=== PATIENT | female | born 1995 | race Caucasian/White ===

== ENCOUNTER 2022-06-28 00:35 | Emergency (ER) | payer OTHER, MEDICAID, SELFPAY ==
[2022-06-28 00:38] VITALS: BP 141/78; PULSE 98; RESP 18; TEMP 36.6; O2SAT 99; BMI 34.7
--- NOTE | 2022-06-28 02:09 | ED_ITS ---
HPI - Ear Problem General Chief complaint: Ear Problems Stated complaint: COVID+, has pink eye, ear pain Time Seen by Provider: 06/28/22 00:50 History of Present Illness HPI Narrative: Patient is a 26-year-old female presents today with having coughing congestion upper respiratory symptoms. Still having right ear pain. Patient tested positive for COVID a few days ago. Been having earache getting worst. Presented to the emergency department. No neck pain. No focal weakness Related Data Previous Rx's Medication Instructions Recorded azithromycin 250 mg tablet See Rx Instructions PO .COMPLEX 06/28/22 upper resp infection #6 tabs ibuprofen 400 mg tablet 400 mg PO Q6H PRN pain #20 tabs 06/28/22 Allergies Allergy/AdvReac Type Severity Reaction Status Date / Time Penicillins Allergy Severe ANAPHYLAXIS Unverified 03/01/20 16:32 latex [LATEX] Allergy Intermediate RASH Unverified 03/01/20 16:32 amoxicillin [Augmentin] Allergy Unknown anaphylaxis Verified 06/25/16 00:00 clavulanic acid [Augmentin] Allergy Unknown anaphylaxis Verified 06/25/16 00:00 penicillin V Allergy Unknown anaphylaxis Verified 06/25/16 00:00 From Augmentin Allergy Unknown HIVES Uncoded 03/01/20 16:32 Latex Allergy Unknown rash Uncoded 06/25/16 00:00 Review of Systems Review of Systems: Positive coughing congestion upper respiratory symptoms positive hearing on the right side Yes all other systems are reviewed and are negative [facility] Past Medical History Attestation statement: The following information was validated with the patient. Social History Social History Advance Directives: No Advance Directives Information Provided: Yes Physical Exam Vital Signs: Vital Signs: Last Vital Signs Temp 97.9 F 06/28/22 00:38 Pulse 98 06/28/22 00:38 Resp 18 06/28/22 00:38 BP 141/78 H 06/28/22 00:38 Pulse Ox 99 06/28/22 00:38 O2 Del Method 06/28/22 00:38 BMI result Body Mass Index 34.7 Appearance: Alert. Oriented X3. No acute distress. Eyes: Pupils equal, round and reactive to light. ENT: Pharynx normal. TMs on right side was grossly bulging. Light reflex is gone. Slight redness noted. Neck: Normal inspection. Neck supple. No lymph nodes noted. No crepitus CVS: Normal heart rate and rhythm. Pulses normal. Normal S1 and S2 Respiratory: No respiratory distress. Breath sounds normal. No Wheezing. No rales Abdomen: Soft and nontender. No rigidity. No distention. good BS x4 Skin: Skin warm and dry. Normal skin color. Normal skin turgor. Extremities: No lower extremity edema. Neurovascular intact to all extremities. No Lacerations. No Rash Neuro: Oriented X 3. No motor deficit. No sensory deficit. Moving all extermities. No slurred speech Medical Decision Making Differential Diagnosis Ear infection otitis media patient has pain to the right ear. Bulging eardrums. There is no mastoid tenderness suggest malignant otitis media. Patient well- appearing. Positive COVID. Previous allergies to penicillin and Augmentin. Will give patient a Z-Dav. Close follow-up on an outpatient basis. Motrin for pain. Prescription Management I considered prescription management with: Pain Medication and Antibiotic Discharge Plan Discharge Clinical Impression: Otitis media Patient Disposition: Home, Self-Care Instructions: Ear Infection (ED), COVID-19 (Coronavirus Disease 2019) (ED) Prescriptions: New azithromycin 250 mg tablet See Rx Instructions .ROUTE .COMPLEX Qty: 6 0RF Rx Instructions: take 500 mg today (day 1), then 250 mg for 4 days (days 2-5) ibuprofen 400 mg tablet 400 mg PO Q6H PRN (Reason: pain) Qty: 20 0RF Referrals: Adwoa Warren MD [Primary Care Provider] -
== END 2022-06-28 02:19 | disposition home or self-care (01) ==
PROVIDERS: Emergency Provider Emergency Medicine Emergency Medical Services; PCP Family Medicine
DX: U07.1 COVID-19 (principal); H66.91 Otitis media, unspecified, right ear
CPT/HCPCS: 99282; 99283

== ENCOUNTER 2022-08-06 20:15 | Emergency (ER) | payer OTHER, MEDICAID, SELFPAY ==
--- NOTE | ~2022-08-06 | US_ITS ---
EXAMINATION: ULTRASOUND PELVIC, obstetric CLINICAL INFORMATION: Pelvic pain COMPARISON: CT scan abdomen pelvis 03/03/2013 TECHNIQUE: Transvaginal: Used to better visualize pelvic structures Transabdominal: Not adequate for visualization Spectral Doppler and color Doppler exam was utilized. LMP: 06/25/2022. Gestational age by LMP 6 weeks 0 days. VANESSA by LMP 04/01/2023 FINDINGS: UTERUS: Trace fluid in the endometrial cavity. Endometrial thickness 0.7 cm. Uterus measures 7.3 x 3.1 x 4 cm. ADNEXA: Ovarian vascularity:Doppler demonstrates both arterial and venous vascular flow in the right and left ovary. No evidence of ovarian torsion. Right Ovary: 2.9 x 2 x 2.7 cm Left Ovary: 2.8 x 1.8 x 2.3 cm Cul-de-sac: No Fluid US/US OB pelvic and transvaginal IMPRESSION: No intrauterine gestation. Ectopic cannot be excluded. There is no adnexal abnormality. No fluid in the cul-de-sac. Correlate with serum beta-hCG levels. Consider follow-up ultrasound in 2-3 weeks.
[2022-08-06 20:25] VITALS: BP 128/80; PULSE 106; RESP 18; TEMP 36.4; O2SAT 98; BMI 35.4
--- NOTE | 2022-08-06 20:26 | ED_ITS ---
HPI - Female Genitourinary General Chief complaint: Vaginal Bleeding <ARVIN Davies - Last Filed: 08/06/22 20:29> Stated complaint: ?Miscarriage <ARVIN Davies - Last Filed: 08/06/22 20:29> Time Seen by Provider: 08/06/22 23:03 <ARVIN Davies - Last Filed: 08/06/22 20:29> Source: patient <Luisa Tello MD - Last Filed: 08/07/22 00:03> Mode of arrival: ambulatory <Luisa Tello MD - Last Filed: 08/07/22 00:03> History of Present Illness HPI Narrative: 26-year-old female , comes in with LMP 06/25 (knew she was ) and developed vaginal spotting last night but then began having cramping this morning with passing copious amounts of clots the has since slowed down. Patient states that she continues to have abdominal cramping although it has lessened in character. <Luisa Tello MD - Last Filed: 08/07/22 00:03> Related Data Home medications: Previous Rx's Medication Instructions Recorded azithromycin 250 mg tablet See Rx Instructions PO .COMPLEX 06/28/22 upper resp infection #6 tabs ibuprofen 400 mg tablet 400 mg PO Q6H PRN pain #20 tabs 06/28/22 <ARVIN Davies - Last Filed: 08/06/22 20:29> Allergies/Adverse reactions: Allergies Allergy/AdvReac Type Severity Reaction Status Date / Time Penicillins Allergy Severe ANAPHYLAXIS Verified 08/06/22 20:25 latex [LATEX] Allergy Intermediate RASH Verified 08/06/22 20:25 amoxicillin [Augmentin] Allergy Unknown anaphylaxis Verified 08/06/22 20:25 clavulanic acid [Augmentin] Allergy Unknown anaphylaxis Verified 08/06/22 20:25 penicillin V Allergy Unknown anaphylaxis Verified 08/06/22 20:25 From Augmentin Allergy Unknown HIVES Uncoded 03/01/20 16:32 Latex Allergy Unknown rash Uncoded 06/25/16 00:00 <ARVIN Davies - Last Filed: 08/06/22 20:29> Review of Systems Review of Systems: Pertinent positives and negatives as stated in HPI <Luisa Tello MD - Last Filed: 08/07/22 00:03> [facility] Past Medical History Source: nursing notes reviewed <Luisa Tello MD - Last Filed: 08/07/22 00:03> Social History Social History: Social History Smoked in Last 30 Days: Yes Use of substances other than those prescribed or required for medical reasons: No Advance Directives: No Advance Directives Information Provided: No Patient : Yes <ARVIN Daveis - Last Filed: 08/06/22 20:29> Physical Exam Vital Signs: Vital Signs: Last Vital Signs Temp 97.9 F 08/06/22 23:54 Pulse 90 08/06/22 23:54 Resp 19 08/06/22 23:54 BP 124/75 08/06/22 23:54 Pulse Ox 100 08/06/22 23:54 O2 Del Method 08/06/22 23:54 BMI result Body Mass Index 35.4 <ARVIN Davies - Last Filed: 08/06/22 20:29> Vital Signs: Last Vital Signs Temp 97.9 F 08/06/22 23:54 Pulse 90 08/06/22 23:54 Resp 19 08/06/22 23:54 BP 124/75 08/06/22 23:54 Pulse Ox 100 08/06/22 23:54 O2 Del Method 08/06/22 23:54 BMI result Body Mass Index 35.4 VITAL SIGNS: Reviewed. GENERAL: Well developed, well nourished, in no acute distress. HEAD: Normocephalic/atraumatic EYES: PERRLA, EOMI LUNGS: Normal breath sounds. No adventitious sounds or accessory muscle use. SpO2<100> CARDIOVASCULAR: Regular rate and rhythm without noted murmurs ABDOMEN: Soft, non-tender, non-distended with bowel sounds. MUSCULOSKELETAL: No tenderness, deformities, or effusions noted on gross inspection. EXTREMITIES: No cyanosis, clubbing or edema. SKIN: Inspection of the skin reveals no rashes NEUROLOGIC: Alert and oriented x 4. Strength and sensation to light touch were grossly intact x 4. <Luisa Tello MD - Last Filed: 08/07/22 00:03> Course Course Course Narrative: RME - 26 y/o who is currently ~6 weeks LMP 06/25/22 presents to the ER with vaginal bleeding and cramping that started yesterday but got acutely worse today, now passing clots. Pain is on the right pelvic area but also in the middle, also reports back pain. Will get labs and pelvic U/S to r/o ectopic. <ARVIN Davies - Last Filed: 08/06/22 20:29> Medical Decision Making Medical Decision Making [facility] Narrative: 26-year-old female with history and clinical presentation and review of all investigations my interpretation is that patient has had first-trimester vaginal bleeding with clots which is highly suggestive of possible SAB. Patient is aware of all results, she is hemodynamically stable and will be given pain medication for the cramping and after discussion and consultation with OBGYN, Dr. Sherif Rangel, patient will be discharged with instructions to follow-up in 48 hours to obtain a repeat hCG and she will avoid all ibuprofen until that time. <Luisa Tello MD - Last Filed: 08/07/22 00:03> Differential Diagnosis Differential Diagnoses: The differential diagnosis associated with the presentation includes <Luisa Tello MD - Last Filed: 08/07/22 00:03> Please see the discussion above <Luisa Tello MD - Last Filed: 08/07/22 00:03> Consult Healthcare Provider Management of the patient was discussed with: Commercial Title Examiner <Luisa Tello MD - Last Filed: 08/07/22 00:03> 2346: Dr. Sherif Rangel has recommended follow-up in 48 hours for repeat hCG and no administration of ibuprofen. <Luisa Tello MD - Last Filed: 08/07/22 00:03> Lab Data [facility] Lab Attestation statement: I reviewed the patient's lab results. <Luisa Tello MD - Last Filed: 08/07/22 00:03> Please see the discussion above <Luisa Tello MD - Last Filed: 08/07/22 00:03> Result Diagrams: 08/06/22 21:23 08/06/22 21:23 <ARVIN Davies - Last Filed: 08/06/22 20:29> Labs: Lab Results 08/06/22 08/06/22 08/06/22 Range/Units 21: 21: 21:23 WBC 7.9 (4.8-10.8) X10*3/uL RBC 4.40 (4.20-5.50) X10*6/uL Hgb 13.0 (12.0-16.0) g/dl Hct 39.0 (37.0-47.0) % MCV 88.6 (80.0-98.0) fL MCH 29.5 (27.0-33.0) pg MCHC 33.3 (31.0-35.0) g/dl RDW 12.6 (11.0-16.0) % Plt Count 245 (160-400) X10*3/uL MPV 9.9 (9.4-12.3) fL Immature Gran % (Auto) 0.3 (0.0-0.4) % Neut % (Auto) 59.9 (45-73) % Lymph % (Auto) 28.7 (20-40) % [place] % (Auto) 7.5 (2-11) % Eos % (Auto) 3.2 (0-4) % Baso % (Auto) 0.4 (0-2) % Lymph # (Auto) 2.3 (1.2-4.9) X10*3/uL [place] # (Auto) 0.6 (0.1-1.2) X10*3/uL Eos # (Auto) 0.3 (0.0-0.4) X10*3/uL Baso # (Auto) 0.0 (0.0-0.2) X10*3/uL Abs Immat Gran (auto) 0.02 (0.00-0.03) X10*3/uL Absolute Neuts (auto) 4.7 (2.0-8.3) x10*3/uL Absolute Nucleated RBC 0.000 (0.0-0.012) X10*3/uL Nucleated RBC % (auto) 0.0 (0.0-0.2) /100WBC Sodium 140 (135-145) mmol/L Potassium 4.2 (3.3-5.1) mmol/L Chloride 108 (96-108) mmol/L Carbon Dioxide 25 (22-29) mmol/L Anion Gap 11 L (12-20) BUN 11 (9-16) mg/dL Creatinine 0.74 (0.5-1.4) mg/dL Estim Creat Clear Calc 119.7 Estimated GFR > 60 Random Glucose 113 (60-115) mg/dL Calcium 9.4 (8.4-10.2) mg/dL Magnesium 1.9 (1.6-2.6) mg/dL Total Bilirubin 0.6 (0.0-1.0) mg/dL Direct Bilirubin 0.2 (0.0-0.5) mg/dL AST 20 (5-31) U/L ALT 31 (0-31) U/L Alkaline Phosphatase 66 (39-117) U/L Total Protein 6.4 L (6.5-8.0) g/dL Albumin 4.0 (3.5-5.0) g/dL Beta HCG, Quant 1270 mIU/mL Blood Type O Positive <ARVIN Davies - Last Filed: 08/06/22 20:29> Lab Results 08/06/22 08/06/22 08/06/22 Range/Units 21:23 21:23 21:23 WBC 7.9 (4.8-10.8) X10*3/uL RBC 4.40 (4.20-5.50) X10*6/uL Hgb 13.0 (12.0-16.0) g/dl Hct 39.0 (37.0-47.0) % MCV 88.6 (80.0-98.0) fL MCH 29.5 (27.0-33.0) pg MCHC 33.3 (31.0-35.0) g/dl RDW 12.6 (11.0-16.0) % Plt Count 245 (160-400) X10*3/uL MPV 9.9 (9.4-12.3) fL Immature Gran % (Auto) 0.3 (0.0-0.4) % Neut % (Auto) 59.9 (45-73) % Lymph % (Auto) 28.7 (20-40) % [place] % (Auto) 7.5 (2-11) % Eos % (Auto) 3.2 (0-4) % Baso % (Auto) 0.4 (0-2) % Lymph # (Auto) 2.3 (1.2-4.9) X10*3/uL [place] # (Auto) 0.6 (0.1-1.2) X10*3/uL Eos # (Auto) 0.3 (0.0-0.4) X10*3/uL Baso # (Auto) 0.0 (0.0-0.2) X10*3/uL Abs Immat Gran (auto) 0.02 (0.00-0.03) X10*3/uL Absolute Neuts (auto) 4.7 (2.0-8.3) x10*3/uL Absolute Nucleated RBC 0.000 (0.0-0.012) X10*3/uL Nucleated RBC % (auto) 0.0 (0.0-0.2) /100WBC Sodium 140 (135-145) mmol/L Potassium 4.2 (3.3-5.1) mmol/L Chloride 108 (96-108) mmol/L Carbon Dioxide 25 (22-29) mmol/L Anion Gap 11 L (12-20) BUN 11 (9-16) mg/dL Creatinine 0.74 (0.5-1.4) mg/dL Estim Creat Clear Calc 119.7 Estimated GFR > 60 Random Glucose 113 (60-115) mg/dL Calcium 9.4 (8.4-10.2) mg/dL Magnesium 1.9 (1.6-2.6) mg/dL Total Bilirubin 0.6 (0.0-1.0) mg/dL Direct Bilirubin 0.2 (0.0-0.5) mg/dL AST 20 (5-31) U/L ALT 31 (0-31) U/L Alkaline Phosphatase 66 (39-117) U/L Total Protein 6.4 L (6.5-8.0) g/dL Albumin 4.0 (3.5-5.0) g/dL Beta HCG, Quant 1270 mIU/mL Blood Type O Positive <Luisa Tello MD - Last Filed: 08/07/22 00:03> Radiology Impression Radiologist Impression: My interpretation is in agreement with radiology's impression of the imaging study. <Luisa Tello MD - Last Filed: 08/07/22 00:03> Discharge Plan Discharge Clinical Impression: First trimester bleeding, SAB (spontaneous ) <ARVIN Davies - Last Filed: 08/06/22 20:29> Patient Disposition: Home, Self-Care <ARVIN Davies - Last Filed: 08/06/22 20:29> Instructions: Miscarriage (ED) <ARVIN Davies - Last Filed: 08/06/22 20:29> Additional Instructions: 1. Drink plenty of water 2. Follow-up with your OB physician in 2 days for repeat hCG. 3. Tylenol 1000 mg, orally, every 6 hours as needed for pain control. Do not exceed 4000 mg within 24 hours. You may additional use a heating pad for additional symptom relief. Do not use any ibuprofen/Motrin/Aleve at this time. Return to the ER for any worsening symptoms. <ARVIN Davies - Last Filed: 08/06/22 20:29> Prescriptions: No Action azithromycin 250 mg tablet See Rx Instructions .ROUTE .COMPLEX Qty: 6 0RF Rx Instructions: take 500 mg today (day 1), then 250 mg for 4 days (days 2-5) ibuprofen 400 mg tablet 400 mg PO Q6H PRN (Reason: pain) Qty: 20 0RF <ARVIN Davies - Last Filed: 08/06/22 20:29> Referrals: Adwoa Warren MD [Primary Care Provider] - Santhosh Gorman MD [Physician] - <ARVIN Davies - Last Filed: 08/06/22 20:29> Stand Alone Forms: Work/School Release <ARVIN Davies - Last Filed: 08/06/22 20:29>
[2022-08-06 21:28] LABS: MANUAL DIFF FLAG NO
[2022-08-06 21:29] LABS: Basophils Percent Auto 0.4 % (0-2); Eosinophils Absolute Auto 0.3 X10*3/uL (0.0-0.4); Eosinophils Percent Auto 3.2 % (0-4); Imm Gran Abs Auto 0.02 X10*3/uL (0.00-0.03); Imm Gran Pct Auto 0.3 % (0.0-0.4); Lymphocytes Absolute Auto 2.3 X10*3/uL (1.2-4.9); Lymphocytes Percent Auto 28.7 % (20-40); Mean Corpuscular HGB Conc 33.3 g/dl (31.0-35.0); Mean Corpuscular Hemoglobin 29.5 pg (27.0-33.0); Mean Corpuscular Volume 88.6 fL (80.0-98.0); Mean Platelet Volume 9.9 fL (9.4-12.3); Monocytes Absolute Auto 0.6 X10*3/uL (0.1-1.2); Monocytes Percent Auto 7.5 % (2-11); Neutrophils Absolute Auto 4.7 x10*3/uL (2.0-8.3); Neutrophils Percent Auto 59.9 % (45-73); Platelet Count 245 X10*3/uL (160-400); Red Cell Distribution Width 12.6 % (11.0-16.0); White Blood Count 7.9 X10*3/uL (4.8-10.8)
[2022-08-06 21:58] LABS: Alanine Aminotransferase 31 U/L (0-31); Alkaline Phosphatase 66 U/L (39-117); Anion Gap 11 (12-20); Aspartate Amino Transferase 20 U/L (5-31); Bilirubin Direct 0.2 mg/dL (0.0-0.5); Bilirubin Total 0.6 mg/dL (0.0-1.0); Blood Urea Nitrogen 11 mg/dL (9-16); Calcium 9.4 mg/dL (8.4-10.2); Carbon Dioxide 25 mmol/L (22-29); Chloride 108 mmol/L (96-108); Creatinine Clr Calc Pharmacy 119.7; Estimated Glomerular Filt Rate > 60; Glucose Random 113 mg/dL (60-115); HCG Quantitative 1270 mIU/mL; Magnesium 1.9 mg/dL (1.6-2.6); Potassium 4.2 mmol/L (3.3-5.1); Sodium 140 mmol/L (135-145); Total Protein 6.4 g/dL (6.5-8.0)
[2022-08-06 22:34] VITALS: BP 117/83; PULSE 93; RESP 18; O2SAT 98
--- NOTE | 2022-08-06 23:23 | PC.NURSE ---
This nurse resume care at 2300:
--- NOTE | 2022-08-06 23:36 | PC.NURSE ---
Pt's V/S are stable, Pt LMP was 06/15/2022, Pt reports experiencing cramping 12/22 and bleeding about 15ml bright blood and blood clots. pt is a/ox4, and appears to be calm. will continue to monitor. Please referral to the worklist for further info. Pt's neuro, cardiac, GI, and cardiac, pt denies any other symptoms.
--- NOTE | 2022-08-06 23:52 | P.CONOB_ITS ---
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 Since then bleeding has slowed down markedly. In the emergency room the following workup was done CBC, within normal, hCG 1230, O p ositive, pelvic ultrasound done cc:: CC: OB [facility] Social History Social History Smoked in Last 30 Days: Yes Use of substances other than those prescribed or required for medical reasons: No Advance Directives: No Advance Directives Information Provided: No Patient : Yes Meds Allergies Allergy/AdvReac Type Severity Reaction Status Date / Time Penicillins Allergy Severe ANAPHYLAXIS Verified 08/06/22 20:25 latex [LATEX] Allergy Intermediate RASH Verified 08/06/22 20:25 amoxicillin [Augmentin] Allergy Unknown anaphylaxis Verified 08/06/22 20:25 clavulanic acid [Augmentin] Allergy Unknown anaphylaxis Verified 08/06/22 20:25 penicillin V Allergy Unknown anaphylaxis Verified 08/06/22 20:25 From Augmentin Allergy Unknown HIVES Uncoded 03/01/20 16:32 Latex Allergy Unknown rash Uncoded 06/25/16 00:00 [employer] Physical Exam Vitals Vital signs: Temp Pulse Resp BP Pulse Ox O2 Del Method 97.5 F 93 18 117/83 98 08/06/22 20:25 08/06/22 22:34 08/06/22 22:34 08/06/22 22:34 08/06/22 22:34 08/06/22 22:34 BMI result Body Mass Index 35.4 [employer] - Results Labs 08/06/22 21:23 08/06/22 21:23 Labs: Short CBC 08/06/22 Range/Units : WBC 7.9 (4.8-10.8) X10*3/uL Hgb 13.0 (12.0-16.0) g/dl Hct 39.0 (37.0-47.0) % Plt Count 245 (160-400) X10*3/uL BMP 08/06/22 21:23 Sodium 140 Potassium 4.2 Chloride 108 Carbon Dioxide 25 BUN 11 Creatinine 0.74 Calcium 9.4 Liver Function 08/06/22 Range/Units 21:23 Total Bilirubin 0.6 (0.0-1.0) mg/dL Direct Bilirubin 0.2 (0.0-0.5) mg/dL AST 20 (5-31) U/L ALT 31 (0-31) U/L Alkaline Phosphatase 66 (39-117) U/L Albumin 4.0 (3.5-5.0) g/dL Imaging US - abdomen: Radiologist's impression: ITS Impressions Pelvic/Transvag US 08/06/22 20:47 IMPRESSION: No intrauterine gestation. Ectopic cannot be excluded. There is no adnexal abnormality. No fluid in the cul-de-sac. Correlate with serum beta-hCG levels. Consider follow-up ultrasound in 2-3 weeks. Assessment and Plan (1) First trimester bleeding: Status: Acute Plan Differential diagnosis include SAB, ectopic or early intrauterine . Recommended to Dr. Conte the following: Repeat hCG and follow-up in outpatient office in 48 hours with SAB/ectopic warnings; Tylenol p.r.n., no ibuprofen. Instructions to be given to patient to come back to the emergency room in case of persistence, recurrence of vaginal bleeding and /or pelvic pain. I spent a total of 20 minutes reviewing the chart, communicating to the emergency room provider and documenting in the medical record Time Spent With Patient Time: Total time managing care of this patient today ____ minutes.
[2022-08-06 23:54] VITALS: BP 124/75; PULSE 90; RESP 19; TEMP 36.6; O2SAT 100
[2022-08-07 00:17] LABS: Appearance Urine Hazy; Color Urine Red; Glucose Urine UA Negative (Negative); Leukocyte Esterase Urine Negative (Negative); Nitrite Urine Negative (Negative); UMIC TRIGGER UACC YES; Urine Blood Large (3+) (Negative); Urine Ketones Negative (Negative); Urine Protein Negative (Neg-Trace)
[2022-08-07] MEDS: Acetaminophen 325 MG TABLET 975 MG PO (00:19)
[2022-08-07] MEDS: oxyCODONE HCl Immed Release 5 MG TABLET PO (00:20)
[2022-08-07 00:21] LABS: Bacteria Urine None Seen (None Seen); Hyaline Casts Urine 0-2 /LPF (0-2); RBC Urine >20 /HPF (0-2); Squamous Epithelial Cell Urine 0-2 /HPF (0-2); WBC Urine 0-5 /HPF (0-5)
== END 2022-08-07 00:23 | disposition home or self-care (01) ==
PROVIDERS: Physician Assistant; Emergency Provider Student in an Organized Health Care Education/Training Program; PCP Family Medicine
DX: O03.9 Complete or unspecified spontaneous abortion without complication (principal); Z79.899 Other long term (current) drug therapy
CPT/HCPCS: 36415; 76801; 76817; 80048; 80076; 81001; 83735; 84702; 85025; 86900; 86901; 99284